=== PATIENT | female | born 1950 | race Caucasian/White ===

== ENCOUNTER 2016-12-10 10:22 | Day surgery (SDC) | payer MEDICARE, OTHER ==
[~2016-12-10 10:22] MED LIST: IV START KIT ONE; LACTATED RINGERS 0 ML ONE; LACTATED RINGERS 1,000 ML IV SCH
[2016-12-10] MEDS ORDERED: SODIUM CHLORIDE 0.9% 1,000 ML ONE (10:33)
[2016-12-10] MEDS ORDERED: SODIUM CHLORIDE 0.9% 1,000 ML IV SCH (10:45)
[2016-12-10] MEDS ORDERED: PROPOFOL 20 ML IV ONE (11:31)
[2016-12-10 13:17] LABS: HELICOBACTER PYLORII DETECTION NEGATIVE (NEGATIVE)
--- NOTE | 2016-12-14 11:45 | SURGPATH ---
[facility] [address] [place] [id number] Patient Name: ROSA M RIOS MR#: [id number] : 1950 Gender: F Specimen #: [id number] Collected: 12/10/2016 Received: 12/11/2016 Reported: 12/14/2016 Submitting Phys: SHAHLA CERRATO Copy To Phys: [facility] KANDACE WILLIAMSON Clinical History / Pre-Operative Diagnosis: ABDOMINAL PAIN; NAUSEA; RULE OUT GIARDIA, CELIAC SPRUE AND GASTRITIS Specimen Source / Surgical Procedure Performed: #1-DUODENAL; #2-ANTRAL Interpretation: 1. DUODENUM, BIOPSY: - SMALL BOWEL MUCOSA SHOWING NO DIAGNOSTIC ABNORMALITIES. - NO EVIDENCE OF CELIAC DISEASE. - NO EVIDENCE OF SIGNIFICANT INFLAMMATION, VILLOUS BLUNTING, OR MALIGNANCY. 2. GASTRIC ANTRUM, BIOPSY: - MILD REACTIVE GASTROPATHY. - NO MICROORGANISMS IDENTIFIED WITH ROUTINE STAINING. - NO EVIDENCE OF SIGNIFICANT INFLAMMATION, INTESTINAL METAPLASIA, OR MALIGNANCY. Electronically Signed Out Jose Hilario M.D., Ph.D. Gross Description: #1 The specimen is received in a formalin filled container labeled with the patient's name and "duodenum". Two cervantes biopsies are 0.3 and 0.4 cm. Totally embedded in cassette #1. #2 The specimen is received in a formalin filled container labeled with the patient's name and "antral". Two cervantes biopsies are 0.2 and 0.5 cm. Totally embedded in cassette #2. Carmen Leigh Microscopic Description: 1. Examination of multiple levels from the duodenum biopsy shows a single fragment of histologically unremarkable small bowel mucosa. The villous architecture is intact without evidence of blunting. There is no evidence of increased intraepithelial lymphocytes. There is no evidence of significant inflammation or malignancy. 2. Examination of multiple levels from gastric antrum biopsy shows a single fragment of gastric mucosa with superficial smooth muscle proliferation associated with tortuous glands. The lamina propria is otherwise not expanded. No microorganisms identified with routine staining. There is no evidence of significant inflammation, intestinal metaplasia, or malignancy. 1: [id number] 2: [id number] K31.9
== END 2016-12-10 12:10 | disposition home or self-care (01) ==
LOC: SDC 10:22
PROVIDERS: ATTEND Internal Medicine Gastroenterology
PROC: 0DB98ZX Excision of Duodenum, Via Natural or Artificial Opening Endoscopic, Diagnostic (ICD-10-PCS; principal; 2016-12-10)
PROC: 0DB68ZX Excision of Stomach, Via Natural or Artificial Opening Endoscopic, Diagnostic (ICD-10-PCS; 2016-12-10)
DX: K29.70 Gastritis, unspecified, without bleeding (principal); K29.80 Duodenitis without bleeding; F41.9 Anxiety disorder, unspecified; J45.909 Unspecified asthma, uncomplicated; E11.22 Type 2 diabetes mellitus with diabetic chronic kidney disease; I12.9 Hypertensive chronic kidney disease with stage 1 through stage 4 chronic kidney disease, or unspecified chronic kidney disease; N18.9 Chronic kidney disease, unspecified; M19.90 Unspecified osteoarthritis, unspecified site; G20 Parkinson's disease; M79.1 Myalgia; I25.10 Atherosclerotic heart disease of native coronary artery without angina pectoris; Z95.818 Presence of other cardiac implants and grafts; Z88.0 Allergy status to penicillin; Z88.5 Allergy status to narcotic agent; Z88.8 Allergy status to other drugs, medicaments and biological substances; Z79.4 Long term (current) use of insulin